=== PATIENT | male | born 1960 | race Caucasian/White ===

== ENCOUNTER 2019-10-30 07:58 | Day surgery (SDC) | payer OTHER ==
[~2019-10-30 07:58] MED LIST: ACETAMINOPHEN 500 MG TABLET PO ONE; CELECOXIB 100 MG CAPSULE PO ONE; CLINDAMYCIN PHOS/D5W 900MG 900 MG/50 ML BAG IVPB ONE; FAMOTIDINE 20MG TABLET PO ONE; METOCLOPRAMIDE 10 MG TABLET PO ONE; SCOPOLAMINE 1 PATCH TDSY TD ONE; VANCOMYCIN 1GM/200ML PREMIX 1 GM/200 ML PIGGYBACK IVPB ONE
[2019-10-30] MEDS ORDERED: DEXAMETHASONE 4 MG/ML 1ML VIAL IVP ONE (07:59)
[2019-10-30] MEDS ORDERED: EPHEDRINE SULFATE 50 MG/ML ML IV ONE (07:59)
[2019-10-30] MEDS ORDERED: MIDAZOLAM HCL 2MG/2ML VIAL IV ONE (07:59)
[2019-10-30] MEDS ORDERED: ROPIVACAINE HCL (NAROPIN) /PF 5MG/ML 20ML VIAL IV ONE (07:59)
[2019-10-30] MEDS ORDERED: LIDOCAINE 2% MDV (20MG/ML) 20ML VIAL IV ONE (07:59)
[2019-10-30] MEDS ORDERED: PHENYLEPHRINE HCL 10 MG/ML VIAL IVP ONE (07:59)
[2019-10-30] MEDS ORDERED: PROPOFOL 10 MG/ML VIAL IV ONE (07:59)
[2019-10-30] MEDS ORDERED: HYDROMORPHONE HCL 2 MG/ML VIAL IM PRN ×2 (08:32)
[2019-10-30] MEDS ORDERED: AL HYDROX/MAG HYDROX 30ML UD PO PRN (08:32)
[2019-10-30] MEDS ORDERED: HYDROCODONE/APAP 5/325MG TABLET PO PRN (08:32)
[2019-10-30] MEDS ORDERED: ACETAMINOPHEN 325 MG TAB PO PRN (08:32)
[2019-10-30] MEDS ORDERED: PROMETHAZINE HCL 12.5 MG in 0.9 % SODIUM CHLORIDE 100ML 50 ML IVPB PRN (08:32)
[2019-10-30] MEDS ORDERED: TRAMADOL HCL 50 MG TABLET PO PRN ×2 (08:32)
[2019-10-30] MEDS ORDERED: NALOXONE 0.4 MG/1 ML VIAL IVP PRN (08:32)
[2019-10-30] MEDS ORDERED: HYDROCODONE/APAP 7.5/325MG TABLET PO PRN (08:32)
[2019-10-30] MEDS ORDERED: ACETAMINOPHEN W/ CODEINE 300MG/30MG TABLET PO PRN ×2 (08:32)
[2019-10-30] MEDS ORDERED: KETOROLAC 30 MG/ML VIAL IVP PRN (08:32)
[2019-10-30] MEDS ORDERED: METOCLOPRAMIDE HCL 10 MG/2 ML VIAL IVP PRN (08:32)
[2019-10-30] MEDS ORDERED: BISACODYL 10 MG SUPP RC PRN (08:32)
[2019-10-30] MEDS ORDERED: ZOLPIDEM TARTRATE 5 MG TABLET PO PRN (08:32)
[2019-10-30] MEDS ORDERED: DIPHENHYDRAMINE HCL 25 MG CAPSULE PO PRN (08:32)
[2019-10-30] MEDS ORDERED: ONDANSETRON HCL IV 4 MG/2 ML VIAL IVP PRN (08:32)
[2019-10-30] MEDS ORDERED: MAGNESIUM HYDROXIDE 30 ML UDC PO PRN (08:32)
[2019-10-30] MEDS ORDERED: ACETAMINOPHEN W/ CODEINE 300MG/60MG TABLET PO PRN (08:32)
[2019-10-30] MEDS ORDERED: RINGERS SOLUTION,LACTATED 1,000 ML IV ONE ×3 (08:45→11:45)
[2019-10-30 08:55] LABS: ABO GROUP A; ANTIBODY SCREEN NEGATIVE (NEGATIVE); RH TYPE NEGATIVE
[2019-10-30] MEDS ORDERED: BUPIVACAINE 0.5% W/EPI MPF 30 ML VIAL IU ONE (10:59)
[2019-10-30] MEDS ORDERED: TRANEXAMIC ACID 1,000 MG/10 ML ML IU ONE (10:59)
[2019-10-30] MEDS ORDERED: BUPIVACAINE LIPOSOME 266MG/20ML VIAL SQ ONE (11:00)
[2019-10-30] MEDS ORDERED: VANCOMYCIN HCL 1 GM VIAL IU ONE (11:03)
[2019-10-30] MEDS ORDERED: TRANEXAMIC ACID 1,000 MG/10 ML ML IVPB ONE (11:04)
[2019-10-30] MEDS ORDERED: VANCOMYCIN HCL 1 GM VIAL IR ONE (11:04)
[2019-10-30] MEDS ORDERED: DEXTROSE 5 % AND 0.9 % NACL 1,000 ML IV PRN (13:00)
[2019-10-30] MEDS ORDERED: ARNUITY (FLUTICASONE FUROATE) 100MCG INH INH PRN (13:17)
[2019-10-30] MEDS: HYDROCODONE/APAP 5/325MG TABLET PO PRN ×2 (15:12→21:27)
[2019-10-30] MEDS: METFORMIN 500 MG TABLET PO SCH (16:53)
--- NOTE | 2019-10-30 16:59 | Rehab Evaluation ---
Patient Information - Patient Information Diagnosis: L knee DJD Ordered Treatment: PT Evaluate and Treat Status: Initial Evaluation Surgery: Yes (L knee TKA) Date of Surgery: 10/30/19 Past Medical/Surgical Hx: PAST MEDICAL/SURGICAL HISTORY Past Surgical History NASAL POLYPS X'S 3 PMH - Respiratory Hx Respiratory Disorders Yes Hx Asthma Yes: USES INHALER PRN MORE IN THE SUMMER Hx Bronchitis Yes: HX Hx Pneumonia Yes: HX PMH - Cardiovascular Hx Cardiovascular Disorders Yes Hx Hypertension Yes: CONTROLLED WITH MEDS Exercise Tolerance Good PMH - Neuro Hx Neurological Disorders No PMH - GI Hx Gastrointestinal Disorders Yes Hx Gastroesophageal Reflux Yes: OCCASS. PMH - Hx Genitourinary Disorders Yes Hx Kidney Stones Yes: HX OF PMH - Endocrine Hx Endocrine Disorders Yes Hx Diabetes Yes: DX'D 2018 Hx of NIDDM Yes: ON METFORMIN Comment: DOESNT CHECK BLOOD SUGARS PMH - Musculoskeletal Hx Musculoskeletal Disorders Yes Hx Arthritis Yes PMH - Psych Hx Psychiatric Problems No PMH - Hematology/Oncology Hx Hematology/Oncology No Disorders Premorbid Status: Detail (The patient was independent with all mobility prior to surgery.) Social History: Detail (The patient lives with spouse in a one story house with one platorm step and a step into house with no railings. The bathroom is equipped with: a tub/shower combination, hand held shower, standard height toilet with a riser seat. No grab bars are present in the bathroom. The patient has a standard walker.) Precautions: Currie, Fall, Other (WBAT on the L LE) - Time With Patient Total Time Spent With Patient (Min): 30 Treatment Procedures: Detail (Initial Evaluation low complexity, gait training. The patient returned to bed upon completion of evaluation and was left with call light within reach, ice in place.) Subjective Information - Subjective Information Per Patient (The patient had no complaints of pain.) Objective Data - Mental Status Patient Orientation: Oriented x3 - Visual Perception Appears within normal limits for therapeutic activities - ROM Not within normal limits (The patient's L knee AROM was limited as to be expected following surgery. All other LE AROM was WNL.) - Strength/Tone Not within normal limits (The patient's LE was not tested however was functional ie: patient was able to lift LE's in and out of bed and ambulate.) - Bed Mobility Independent (The patient was independent with supine to and from sit transfer.) - Transfers Independent (The patient is independent with sit to and from stand transfer.) - Balance Balance Sitting: Good Balance Standing: Good - Sensation Intact - Gait Detail (The patient ambulated with standard walker WBAT on the L LE a distance of 11 feet x 1 (to bathroom) and 80 feet x 1 with supervision and assist of one to handle equipment.) Therapy Assessment - Therapy Assessment Detail (The patient was independent with bed mobility, transfers and ambulated with supervision for safety only. Anticipate the patient will meet inpatient PT goals in one to two sessions.) Problem List - Problem List Physical Therapy Problem List: Detail ( Decreased L knee AROM and strength as to be expected s/p surgery.) Goals - Goals Physical Therapy Goals: 1) The patient will ambulate on stairs using proper technique with supervision for safety. 2) The patient will ambulate 100 feet with appropriate assistive device WBAT on the L LE independently. 3) The patient will be independent with TKA HEP. Prognosis - Prognosis Good Plan - Plan Physical Therapy Plan: PT 1-2 sessions for gait training on levels and stairs and instruction in TKA HEP.
[2019-10-30] MEDS: VANCOMYCIN 1GM/200ML PREMIX 1 GM/200 ML PIGGYBACK IVPB SCH (20:47)
[2019-10-30] MEDS: DOCUSATE SODIUM 100 MG CAPSULE PO SCH (21:27)
[2019-10-30] MEDS: FERROUS SULFATE 325 MG TAB PO SCH (21:28)
[2019-10-31 07:26] LABS: HEMATOCRIT 33.3 % (42.0-52.0); HEMOGLOBIN 11.1 gm/dl (14.0-18.0)
[2019-10-31] MEDS: VANCOMYCIN 1GM/200ML PREMIX 1 GM/200 ML PIGGYBACK IVPB SCH (09:37)
[2019-10-31] MEDS: METFORMIN 500 MG TABLET PO SCH (09:37)
[2019-10-31] MEDS: FERROUS SULFATE 325 MG TAB PO SCH (09:37)
[2019-10-31] MEDS: DOCUSATE SODIUM 100 MG CAPSULE PO SCH (09:37)
--- NOTE | 2019-10-31 09:47 | Physical Therapy Tx Note ---
Physical Therapy Tx Note - Treatment Note Tolerated: Good Total Time Spent With Patient: 30 Physical Therapy Tx Note: Detail (The patient was sitting on edge of bed when PT arrived. The patient ambulated with standard walker a distance of 250 feet x1 WBAT on the L LE independently. The patient ambulated on 3 steps x 2 using folded walker and railing using proper technique with supervision only. The patient completed the following TKA HEP independently: seated heel slides, quad sets, gluteal sets, hamstring sets, ankle pumps and SLR. The patient has met all inpt. goals and is discharged from inpt. PT.) Physical Therapy Problem List: Detail ( Decreased L knee AROM and strength as to be expected s/p surgery.) Physical Therapy Goals: 1) The patient will ambulate on stairs using proper technique with supervision for safety. (Goal Met). 2) The patient will ambulate 100 feet with appropriate assistive device WBAT on the L LE independently.(Goal Met). 3) The patient will be independent with TKA HEP. (Goal Met) Physical Therapy Plan: The patient has met all inpt. goals and is discharged from inpt. PT. The pt. is to continue with outpt. PT.
[2019-10-31] MEDS ORDERED: ASPIRIN 81 MG TABEC PO SCH (10:00)
[2019-10-31] MEDS ORDERED: ATORVASTATIN 20 MG TABLET PO SCH (10:00)
[2019-10-31] MEDS ORDERED: MONTELUKAST SODIUM 10MG TABLET PO SCH (10:00)
[2019-10-31] MEDS ORDERED: HYDROCHLOROTHIAZIDE 12.5 MG CAPSULE PO SCH (10:00)
[2019-10-31] MEDS ORDERED: CELECOXIB 100 MG CAPSULE PO SCH (10:00)
[2019-10-31] MEDS ORDERED: RIVAROXABAN 10 MG TABLET PO SCH (10:00)
[2019-10-31] MEDS ORDERED: LOSARTAN POTASSIUM 25 MG TABLET PO SCH (10:00)
--- NOTE | 2019-10-31 12:47 | Rehab Evaluation ---
Patient Information - Patient Information Diagnosis: L knee DJD Ordered Treatment: OT Evaluate and Treat Status: Initial Evaluation Surgery: Yes (L knee TKA) Date of Surgery: 10/30/19 Past Medical/Surgical Hx: PAST MEDICAL/SURGICAL HISTORY Past Surgical History NASAL POLYPS X'S 3 PMH - Respiratory Hx Respiratory Disorders Yes Hx Asthma Yes: USES INHALER PRN MORE IN THE SUMMER Hx Bronchitis Yes: HX Hx Pneumonia Yes: HX PMH - Cardiovascular Hx Cardiovascular Disorders Yes Hx Hypertension Yes: CONTROLLED WITH MEDS Exercise Tolerance Good PMH - Neuro Hx Neurological Disorders No PMH - GI Hx Gastrointestinal Disorders Yes Hx Gastroesophageal Reflux Yes: OCCASS. PMH - Hx Genitourinary Disorders Yes Hx Kidney Stones Yes: HX OF PMH - Endocrine Hx Endocrine Disorders Yes Hx Diabetes Yes: DX'D 2018 Hx of NIDDM Yes: ON METFORMIN Comment: DOESNT CHECK BLOOD SUGARS PMH - Musculoskeletal Hx Musculoskeletal Disorders Yes Hx Arthritis Yes PMH - Psych Hx Psychiatric Problems No PMH - Hematology/Oncology Hx Hematology/Oncology No Disorders Premorbid Status: Detail (The patient was independent with all mobility prior to surgery. 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 The bathroom i s equipped with: a tub/shower combination, hand held shower, standard height toilet with a riser seat. No grab bars are present in the bathroom. The patient has a standard walker as well as a shower seat.) Precautions: Cowley, Fall, Other (WBAT on the L LE) - Time With Patient Total Time Spent With Patient (Min): 35 Treatment Procedures: Detail (OT eval low complexity) Subjective Information - Subjective Information Per Patient Objective Data - Pain Pain Present: Yes (12/25) - Mental Status Patient Orientation: Oriented x3 - Visual Perception Appears within normal limits for therapeutic activities - ROM Within normal limits (Pito UE AROM WNL) - Strength/Tone Within normal limits (Pito UE strength WNL) - Coordination Appears within normal limits for therapeutic activities - Bed Mobility Independent (Ind with supine to sit) - Transfers Independent (Ind with sit to stand from EOB) - Balance Balance Sitting: Good Balance Standing: Good - Sensation Intact - Gait Detail (Pt ambulating in room with standard walker Indly.) - ADL's/IADL's Detail (Pt educated and able to demonstrate learning of modified LE dressing techniques including doffing briefs and slipper socks and donning alfa sock (with assist), underwear, pants and tennis shoes. Reviewed kitchen and shower safety and modifications, pt verbalized understanding.) Therapy Assessment - Therapy Assessment Detail (Pt Ind with modified LE dressing techniques.) Problem List - Problem List Physical Therapy Problem List: Detail ( Decreased L knee AROM and strength as to be expected s/p surgery.) Occupational Therapy Problem List: Detail (No current IP OT problems identified.) Goals - Goals Physical Therapy Goals: 1) The patient will ambulate on stairs using proper technique with supervision for safety. (Goal Met). 2) The patient will ambulate 100 feet with appropriate assistive device WBAT on the L LE independently.(Goal Met). 3) The patient will be independent with TKA HEP. (Goal Met) Occupational Therapy Goals: No current IP OT goals identified at this time. Prognosis - Prognosis Good Plan - Plan Physical Therapy Plan: The patient has met all inpt. goals and is discharged from inpt. PT. The pt. is to continue with outpt. PT. Occupational Therapy Plan: Pt discharged from IP OT at this time. Thank you for this referral.
--- NOTE | 2019-11-01 09:06 | Operative Note ---
DATE OF SURGERY: 10/30/2019 PREOPERATIVE DIAGNOSIS: LEFT KNEE END STAGE ARTHROSIS. POSTOPERATIVE DIAGNOSIS: LEFT KNEE END STAGE ARTHROSIS. OPERATION: LEFT TOTAL KNEE ARTHROPLASTY. SURGEON: Joe Young M.D. ANESTHESIA: Spinal. ANESTHESIA PROVIDER: LAMONT Louis CRNA COMPLICATIONS: None. ESTIMATED BLOOD LOSS: Minimal. TOURNIQUET: None. OPERATIVE FINDINGS: [id number] medial compartment arthrosis. COMPONENTS PLACED: 2 gram Vancomycin cement [employer] two Oxinium total knee arthroplasty system size 8 femoral compartment, a size 8 tibial baseplate, an 18 mm thick tibial polyp insert and a 35 mm cemented patellar component. INDICATIONS: This is a 59-year-old male with end stage left knee arthrosis for several years who is now here for left total knee arthroplasty. I explained the risks and benefits in detail for diagnosis and procedures, not limited to infection, nerve injury, vessel injury, persistent pain, numbness and tingling, periprosthetic fracture, need for resection, arthroplasty components become infected, nerve injury, vessel injury, blood clot, need for anticoagulation to prevent blood clots, risks associated with these medications, and all of his questions were answered and the patient agreed to proceed with the procedure. PROCEDURE: The patient was brought into the Operating Room and placed in the supine position. Spinal anesthesia was induced. The left lower extremity, prepped and draped in sterile fashion. The left knee was prepped again with ChloraPrep. Intraoperative timeout was performed. Next the leg was exsanguinated with Esmarch, the knee was flexed, no tourniquet used. Next, the anterior ports were performed in the knee. The skin and subcutaneous tissue was dissected down to the capsule and we incised the capsule medially along the medial border of the patella to the tibial tubercle. Incised the vastus medialis in line with its fibers using medial lateral approach. Everted patella partially resected the retropatellar fat pad. Elevated the capsule subperiosteally and medially. Flexed the knee, had bone on bone medial compartment arthrosis. Drilled intracondylar drill hole and intracondylar notch, inserted the intramedullary guide palma, 6-degree cutting block, aligned the distal femoral condyles, pinned it in the +2 mm position and cut the distal femoral femoral condyles. Next we placed a sizing jib on the distal femoral condyles and sized it to be right on size 8. Through the previously placed pin holes, we placed a size 8 cutting jig, we dialed the anterior cut so it would come out flush without notching. We then cut that anterior cut and it was a good flush cut with a good footprint.. We stopped there and then pinned the cutting jig, cut the remainder of chamfer cuts in the usual fashion. We placed a size 8 trial femoral component, centered it, pinned it and removed osteophytes off the periphery and then inserted a resection collet, reamed out and box osteomed the cruciate bone block. We exposed the tibia, seated the spikes external alignment jig in the tubercular groove 2 fingerbreadths distally in reference for a 7 mm cut off the lateral plateau, pinned it provisionally, transposed appearance, rechecked alignment of the cutting jig and inserted a drop palma into the cutting jib to make sure it is perpendicular anatomic axis, cross pinned the cutting jig and then cut the tibia. Next we removed osteophytes off the posterior femoral condyles. We cauterized the posterior capsule and cauterized each layer with our Aquamantys electrocautery. Next we checked the flexion/extension gapes, so basically it had to release medially, it was tight and sized up to a size 18 mm, this allowed for 1-2 mm varus/valgus laxity in flexion/extension. Overall alignment cuts in extension was anatomic in valgus orientation with alignment palma centered on the hip joint and ankle joint. Next we took the knee in flexion, we sized the tibial baseplate to be a size 8, we replaced all trial components, set the rotation tibial baseplate again extension using the alignment palma centered on hip joint and ankle joint and marked all pen samuel off the sade samuel at the tibial baseplate. Attention was turned to the patella, measured the patella off the cutting jig to allow for a 9 mm thick poly insert and cut the patella. We remeasured and it was a size of 19 to 18 and measured the patella to be 35, medialized it as much as possible, drilled the peg holes and did a trial range of motion with the patella. The patella tracked nicely handsfree, mixed cement, again symmetric flexion/extension gap was found. Next we took the knee in flexion, we placed a bone plug in the femoral canal hole, we injected the posterior capsule with 0.5% Marcaine with Epinephrine, tranexamic acid and Exparel mixture with several 2 cm subtle sticks of that in the posterior capsule and medial and lateral periosteum. Next we seated the tibial baseplate off the previously placed electrocautery samuel, pinned it in place and drilled out and keel punched the keel hole. Next, we changed gloves, brought out a clean sheet, copiously irrigated bony surfaces with pulse lavage antibiotic solution. Next, we used the CarboJet to dry off the tibial surface first and then inserted the cement, we placed a drill bit there to prevent cement from going down the tibial hole and then removed that and then impacted down the real tibial component removing excess cement. Next we again used the CarboJet to dry off the femoral surfaces, inserted cement and then impacted down the femoral component and also the trial tibial poly liner. Held the knee in extension, clamped down the patellar component, and carefully used CarboJet until the cement hardened. We removed excess cement. Next we took the knee in flexion, distracted the knee with the bone hook and sponge, we irrigated it and then cauterized again and then inserted the real tibial poly insert and verified it was interlocked mediolaterally and found the range of motion to be the same. Irrigated copiously, closed the capsule in flexion using #2 Quill suture, irrigated again, and closed the skin deep with 2-0 Vicryl and a SOY dressing was applied. The patient tolerated the procedure well. No intraoperative complications. Sponge, needle, and blade counts correct. Recovery Room stable. Neurovascular intact. He will be discharged to the floor and likely discharged in 1-2 days home. JOB NUMBER: [id number] MTDD
== END 2019-10-31 12:45 | disposition home or self-care (01) ==
LOC: SUR 07:58 → MEDSURG 13:04 → SUR 10-31 12:45
PROVIDERS: ATTEND Orthopaedic Surgery
DX: M17.12 Unilateral primary osteoarthritis, left knee (principal); I10 Essential (primary) hypertension; E11.9 Type 2 diabetes mellitus without complications; E78.00 Pure hypercholesterolemia, unspecified
CPT/HCPCS: 36416; 76942; 82948; 85014; 85018; 86850; 86900; 86901; C1776; J1885; J2370; J3370; J3490; J7042; J7120

== ENCOUNTER 2019-12-18 12:59 | Day surgery (SDC) | payer BC ==
[~2019-12-18 12:59] MED LIST changes: +ACETAMINOPHEN 1,000 MG/100 ML BTL IVPB ONE; -ACETAMINOPHEN 500 MG TABLET PO ONE; -CELECOXIB 100 MG CAPSULE PO ONE; -CLINDAMYCIN PHOS/D5W 900MG 900 MG/50 ML BAG IVPB ONE; -FAMOTIDINE 20MG TABLET PO ONE; -METOCLOPRAMIDE 10 MG TABLET PO ONE; -SCOPOLAMINE 1 PATCH TDSY TD ONE; -VANCOMYCIN 1GM/200ML PREMIX 1 GM/200 ML PIGGYBACK IVPB ONE
[2019-12-18] MEDS ORDERED: PROPOFOL 10 MG/ML VIAL IV ONE (13:00)
[2019-12-18] MEDS ORDERED: FENTANYL PF 100MCG/2ML VIAL IV ONE (13:00)
[2019-12-18] MEDS ORDERED: MIDAZOLAM HCL 2MG/2ML VIAL IV ONE (13:00)
[2019-12-18] MEDS ORDERED: LIDOCAINE 2% MDV (20MG/ML) 20ML VIAL IV ONE (13:00)
[2019-12-18] MEDS ORDERED: RINGERS SOLUTION,LACTATED 1,000 ML IV ONE (13:30)
[2019-12-18] MEDS ORDERED: BUPIVACAINE 0.5% W/EPI MPF 30 ML VIAL IU ONE (15:01)
[2019-12-18] MEDS ORDERED: METHYLPREDNISOLONE 40MG/VIAL IU ONE (15:01)
[2019-12-18] MEDS ORDERED: HYDROCODONE/APAP 7.5/325MG TABLET PO ONE (15:31)
--- NOTE | 2019-12-19 08:44 | Operative Note ---
DATE OF SURGERY: 12/18/2019 PREOPERATIVE DIAGNOSIS: STIFFNESS LEFT KNEE STATUS POST TOTAL KNEE ARTHROPLASTY. POSTOPERATIVE DIAGNOSIS: STIFFNESS LEFT KNEE STATUS POST TOTAL KNEE ARTHROPLASTY. OPERATION: 1. INJECTION OF KNEE WITH STEROID AND LOCAL. 2. MANIPULATION UNDER ANESTHESIA. SURGEON: Joe Young M.D. ANESTHESIA: Sedation. ANESTHESIA PROVIDER: Concetta Louis CRNA COMPLICATIONS: None. BLOOD LOSS: Minimal. OPERATIVE FINDINGS: Pre-manipulation range of motion was 20-60 degrees. Post manipulation range of motion was 5-120. Just some fine adhesions were felt releasing and heard releasing during the case. INDICATIONS FOR OPERATION: This is a 59-year-old male who is about four to five weeks status post total knee arthroplasty with severe stiffness. Therapy could not progress the last few weeks any further with this flexion. He is borderline diabetic. At this point I wished that he would be more aggressive with the stiffness early and try manipulation early on at this point and he agreed to proceed. PROCEDURE: The patient was brought to the Operating Room and placed in the supine position. Anesthesia was given. We prepped his knee, we injected it with our injection steroid and then manipulated extension and flexion improving his range of motion as listed above. A sterile dressing was applied. The patient tolerated the procedure well. No intraoperative complications. Sponge, needle and blade counts correct. Recovery Room stable. Neurovascular intact. He will be discharged as an outpatient and start therapy tomorrow. JOB NUMBER: [id number] MTDD
== END 2019-12-18 15:53 | disposition home or self-care (01) ==
LOC: SUR 12:59
PROVIDERS: ATTEND Orthopaedic Surgery
DX: M25.662 Stiffness of left knee, not elsewhere classified (principal); Z96.652 Presence of left artificial knee joint; Z98.890 Other specified postprocedural states; I10 Essential (primary) hypertension; E11.9 Type 2 diabetes mellitus without complications; E78.00 Pure hypercholesterolemia, unspecified
CPT/HCPCS: 36416; 82948; J1030; J7120